=== PATIENT | female | born 2000 | race Hispanic/Latino ===

== ENCOUNTER 2022-08-16 12:12 | Observation (INO) | payer SELFPAY ==
[~2022-08-16] VITALS: Ht 160 cm; Wt 94.6 kg
[2022-08-16 12:39] LABS: BASO% 0.3 % (0-3); EOS% 1.1 % (0-8); HEMATOCRIT 39.5 % (37.0-47.0); HEMOGLOBIN 13.2 g/dl (12.0-16.0); IMMATURE GRANULOCYTES 0.4 % (0.0-5.0); LYMPH% 30.6 % (15-41); MEAN CELL VOLUME 80.3 fL CALC (80.0-100.0); MEAN CORPUSCULAR HGB 26.8 pG CALC (26.0-32.0); MEAN CORPUSCULAR HGB CONC 33.4 g/dL CAL (32.0-36.0); MONO% 8.8 % (2-13); NEUT# 12.36 thou/uL (2.00-7.15); NEUT% 58.8 % (42-76); RED BLOOD COUNT 4.92 mill/uL (4.20-5.60); RED CELL DISTRI WIDTH 13.4 % (11.5-15.5)
[2022-08-16 12:55] LABS: ALBUMIN 4.4 g/dL (3.2-5.0); ALKALINE PHOSPHATASE 93 u/l (38-126); ANION GAP 16 (6-22 (CALC)); BILIRUBIN, TOTAL 0.2 mg/dL (0.02-1.3); BUN 12 mg/dL (7-17); BUN/CREATININE RATIO 13 (12-20 (CALC)); CARBON DIOXIDE 19 mmol/l (22-30); CHLORIDE 105 mmol/l (95-108); CREATININE 0.9 mg/dL (0.5-1.0); GFR FOR AFR.AMER. > 60 ML/MIN (>=60 (CALC)); GFR OTHER RACES > 60 ML/MIN (>=60 (CALC)); POTASSIUM 2.6 mmol/l (3.5-5.1); SGOT/AST 26 u/l (14-36); SODIUM 137 mmol/l (137-146); TOTAL PROTEIN 7.8 g/dL (6.3-8.2)
[2022-08-16 17:30] VITALS: BP 134/64
[2022-08-16 18:53] VITALS: BP 113/55
[2022-08-17 00:10] VITALS: BP 113/55
[2022-08-17 04:12] VITALS: BP 129/68
[2022-08-17 05:00] VITALS: BP 129/68
[2022-08-17 05:54] LABS: HEMATOCRIT 37.6 % (37.0-47.0); HEMOGLOBIN 12.4 g/dl (12.0-16.0); MEAN CELL VOLUME 81.7 fL CALC (80.0-100.0); RED BLOOD COUNT 4.6 mill/uL (4.20-5.60)
[2022-08-17 06:21] LABS: ALKALINE PHOSPHATASE 83 u/l (38-126); BILIRUBIN, TOTAL 0.2 mg/dL (0.02-1.3); BUN 7 mg/dL (7-17); BUN/CREATININE RATIO 18 (12-20 (CALC)); CARBON DIOXIDE 21 mmol/l (22-30); CHLORIDE 110 mmol/l (95-108); CREATININE 0.4 mg/dL (0.5-1.0); GFR FOR AFR.AMER. > 60 ML/MIN (>=60 (CALC)); GFR OTHER RACES > 60 ML/MIN (>=60 (CALC)); MAGNESIUM 2.2 mg/dL (1.6-2.3); SGOT/AST 16 u/l (14-36); SODIUM 139 mmol/l (137-146); TOTAL PROTEIN 7.3 g/dL (6.3-8.2)
[2022-08-17 06:26] LABS: ANION GAP 12 (6-22 (CALC)); POTASSIUM 4.1 mmol/l (3.5-5.1)
[2022-08-17 07:13] VITALS: BP 120/71
[2022-08-17 11:00] VITALS: BP 113/78
[2022-08-17] MEDS ORDERED: MEDDOSEPAK PO (11:18)
[2022-08-17] MEDS ORDERED: BENADRYL ALLERG50 MG PO (11:19)
[2022-08-17] MEDS ORDERED: EPIPEN 2-P0.3 MG/0.3 IM (11:20)
== END 2022-08-17 13:56 | disposition home or self-care (01) | DRG 916 ==
LOC: ED 12:12 → ED-I 15:12 → ED 15:24 → MS2 15:25
PROVIDERS: Family Medicine; ADMIT Internal Medicine; ATTEND Internal Medicine
DX: T78.00XA Anaphylactic reaction due to unspecified food, initial encounter (principal); E87.6 Hypokalemia
CPT/HCPCS: G0378; J1650; J3475